=== PATIENT | female | born 1950 | race Caucasian/White ===

== ENCOUNTER → 2016-06-11 | Outpatient (CLI) | payer BC | END | disposition home or self-care (01) | LOC: CFH 10:59 | PROVIDERS: ATTEND Family Medicine | DX: Z12.31 Encounter for screening mammogram for malignant neoplasm of breast (principal) | CPT/HCPCS: G0202 ==

== ENCOUNTER 2020-11-19 09:38 | Outpatient (CLI) | payer MEDICARE | END 2020-11-19 23:59 | disposition home or self-care (01) | LOC: CFH 09:38 | PROVIDERS: ATTEND Obstetrics & Gynecology | DX: Z12.2 Encounter for screening for malignant neoplasm of respiratory organs (principal); I77.810 Thoracic aortic ectasia; I70.0 Atherosclerosis of aorta; I25.10 Atherosclerotic heart disease of native coronary artery without angina pectoris; Z87.891 Personal history of nicotine dependence | CPT/HCPCS: 71271 ==